=== PATIENT | female | born 1955 | race Caucasian/White ===

== ENCOUNTER 2018-08-17 06:09 | Day surgery (SDC) | payer OTHER ==
[~2018-08-17] VITALS: Ht 154.9 cm; Wt 66.2 kg
[2018-08-17] MEDS ORDERED: fentaNYL 0.05 MG/ML VIAL ONE (07:45)
[2018-08-17] MEDS ORDERED: LIDOCAINE 2% 100 MG/5 ML UJET TP ONE (07:45)
== END 2018-08-17 09:05 | disposition home or self-care (01) ==
LOC: MDS 06:09 → MMU 06:09 → MDS 09:05
PROVIDERS: ATTEND Internal Medicine Gastroenterology
DX: K57.30 Diverticulosis of large intestine without perforation or abscess without bleeding (principal); D64.9 Anemia, unspecified; I10 Essential (primary) hypertension; E66.3 Overweight; M19.90 Unspecified osteoarthritis, unspecified site; Z68.27 Body mass index [BMI] 27.0-27.9, adult; Z98.51 Tubal ligation status; Z98.890 Other specified postprocedural states; Z79.899 Other long term (current) drug therapy
CPT/HCPCS: 45378; J3010

== ENCOUNTER 2021-07-04 06:18 | Emergency (ER) | payer OTHER ==
[~2021-07-04] VITALS: Ht 152.4 cm; Wt 67.1 kg
[2021-07-04 06:22] VITALS: BP 172/81
--- NOTE | 2021-07-04 06:28 | NUR ---
PATIENT TO BED 9
[2021-07-04] MEDS ORDERED: TETRACAINE HCL/PF 0.5% OPTH 4 ML BTL OP ONE (06:45)
[2021-07-04] MEDS ORDERED: FLUORESCEIN OPTH STRIP 1 MG OP ONE (06:45)
--- NOTE | 2021-07-04 06:54 | NUR ---
PT TAKEN TO CT
--- NOTE | 2021-07-04 07:00 | NUR ---
PT RETURN FROM CT
--- NOTE | 2021-07-04 07:17 | NUR ---
at bedside performing procedure
[2021-07-04] MEDS ORDERED: TOMOMETER 1 DEV DEV MC ONE (07:19)
--- NOTE | 2021-07-04 07:26 | NUR ---
gave transfer of care report to Skye Garcia RN.
--- NOTE | 2021-07-04 07:27 | NUR ---
RECEIVED REPORT FROM PENNY NIETO. TRANSFER OF CARE AT THIS TIME.
--- NOTE | 2021-07-04 07:40 | NUR ---
65 Y/O FEMALE C/O HEADACHE X2 WEEKS. PT REPORT TAKING MOTRIN WITH NO RELIEF. DENIES TRAUMA OR INJURY. DENIES FEVER/CHILLS. DENIES N/V/D. PMH: HTN, PRE-DIABETIC, ARTRITIS, HYTERECTOMY NKA
[2021-07-04] MEDS ORDERED: DEXA5SUS20 RIGHT EYE (07:47)
[2021-07-04] MEDS ORDERED: IBUP-2213 PO (07:47)
[2021-07-04 08:04] VITALS: BP 172/81
--- NOTE | 2021-07-04 08:04 | NUR ---
Patient discharged with v/s stable. Written and verbal after care instructions given and explained. Patient alert, oriented and verbalized understanding of instructions. Ambulatory with steady gait. All questions addressed prior to discharge. ID band removed. Patient advised to follow up with PMD. Rx of ibuprofen and maxitrol eye drops given. Patient educated on indication of medication including possible reaction and side effects. Opportunity to ask questions provided and answered.
== END 2021-07-04 08:04 | disposition home or self-care (01) ==
LOC: MED 06:18
DX: H20.9 Unspecified iridocyclitis (principal); E11.9 Type 2 diabetes mellitus without complications; I10 Essential (primary) hypertension; Z79.899 Other long term (current) drug therapy
CPT/HCPCS: 70450; 99284

== ENCOUNTER 2021-09-13 04:39 | Observation (INO) | payer OTHER ==
[~2021-09-13] VITALS: Ht 154.9 cm; Wt 67.6 kg
[~2021-09-13 04:39] MED LIST: DEXA5SUS20 RIGHT EYE; IBUP-2213 PO
[2021-09-13 04:49] VITALS: BP 148/84
--- NOTE | 2021-09-13 05:01 | NUR ---
Patient taken to bed 11 via wheelchair.
[2021-09-13] MEDS ORDERED: ONDANSETRON 4 MG/2 ML VIAL IVP ONE (05:10)
--- NOTE | 2021-09-13 05:27 | NUR ---
PT RETURN FROM CT
--- NOTE | 2021-09-13 05:29 | NUR ---
66 yo/f presents to ED w c/o dizziness constant x approx 5 hours, +n/v. Pt denies any fevers/chills, diarrhea, blood in emesis, chest pain, or sob . PMH: HTN, PRE-DIABETIC, RHEUMATOID ARTHRITIS ALLERGIES: DENIES
[2021-09-13 05:37] LABS: BASOPHILS % (AUTO) 0.4 % (0.0-2.0); EOSINOPHILS # (AUTO) 0.1 K/uL (0-0.4); EOSINOPHILS % (AUTO) 1.1 % (0.0-4.0); HEMATOCRIT 36.5 % (36-48); HEMOGLOBIN 12.2 g/dL (12.0-16.0); LYMPHOCYTES # (AUTO) 1.9 K/uL (2.5-16.5); MEAN CORPUSCULAR HEMOGLOBIN 29 pg (27-31); MEAN CORPUSCULAR HGB CONC 34 g/dL (33-37); MEAN CORPUSCULAR VOLUME 86.2 fL (80-94); MONOCYTES # (AUTO) 0.5 K/uL (0.8-1.0); MONOCYTES % (AUTO) 6.1 % (1.7-9.3); NEUTROPHILS # (AUTO) 6.4 K/uL (1.8-7.7); NEUTROPHILS % (AUTO) 71.4 % (42.2-75.2); PLATELET COUNT (AUTO) 313 K/uL (140-450); RED BLOOD CELL COUNT(AUTO) 4.23 MIL/uL (4.20-5.40); RED CELL DISTRIBUTION WIDTH 14.1 % (11.6-13.7)
--- NOTE | 2021-09-13 05:53 | NUR ---
PT UNABLE TO PROVIDE URINE, PT PROVIDED W WATER.
[2021-09-13 06:04] LABS: ALBUMIN 3.7 g/dL (3.4-5.0); ANION GAP 13.4 (8-16); ASPARTATE AMINOTRANSFERASE 23 U/L (15-37); CARBON DIOXIDE 23.2 mmol/L (21-32); CHLORIDE 107 mmol/L (98-107); CREATININE 0.9 mg/dL (0.6-1.3); GFR ARICAN-AMERICAN 81 mL/min (>90); GLUCOSE 158 mg/dL (74-106); POTASSIUM 3.6 mmol/L (3.5-5.1); SODIUM SERUM 140 mmol/L (136-145); TOTAL BILIRUBIN 0.3 mg/dL (0.0-1.0); UREA NITROGEN, BLOOD 19 mg/dL (7-18)
--- NOTE | 2021-09-13 06:19 | NUR ---
Dr. Ordonez examining patient.
[2021-09-13] MEDS ORDERED: MECLIZINE 25 MG TAB PO ONE (06:25)
--- NOTE | 2021-09-13 07:03 | NUR ---
pt reports dizziness has slight improved but unable to move enough to give urine d/t dizziness, and nausea episodes upon movements.
--- NOTE | 2021-09-13 07:22 | NUR ---
Pt report given to PENNY Najera. Transfer of care at this time.
--- NOTE | 2021-09-13 07:37 | NUR ---
pt ambulatory to bathroom w mild assist.
[2021-09-13] MEDS ORDERED: METOCLOPRAMIDE 10 MG/2 ML INJ VIAL IVP ONE (07:55)
[2021-09-13] MEDS ORDERED: NACL 0.9% 1,000 ML IV ONE (07:55)
[2021-09-13] MEDS ORDERED: diphenhydrAMINE 50 MG/ML VIAL IVP ONE (07:55)
[2021-09-13] MEDS ORDERED: LORazepam 2 MG/ML VIAL IVP ONE (07:55)
[2021-09-13 08:17] LABS: BILIRUBIN,URINE NEGATIVE (NEGATIVE); BLOOD, URINE NEGATIVE (NEGATIVE); COLOR,URINE YELLOW (YELLOW); LEUKOCYTE ESTERASE ,URINE NEGATIVE (NEGATIVE); NITRITE, URINE NEGATIVE (NEGATIVE); UGLUCOSE NEGATIVE (NEGATIVE)
[2021-09-13 08:19] LABS: APPEARANCE,URINE CLEAR (CLEAR)
[2021-09-13] MEDS ORDERED: LISI-487 PO (09:27)
--- NOTE | 2021-09-13 09:28 | NUR ---
les swab and med reconcile done at this time
--- NOTE | 2021-09-13 11:01 | NUR ---
Prabhu calderón in [facility] - 09/13/21 at 1140 by MAIN [facility] arrived with wheelchair at this time.
--- NOTE | 2021-09-13 11:02 | NUR ---
Note asiyaroel in [facility] - 09/13/21 at 1139 by MED[facility] Patient discharged with v/s stable. Written and verbal after care instructions given and explained. Patient alert, oriented and verbalized understanding of instructions. Wheel Chair Assisted with [facility] to assisted. All questions addressed prior to discharge. ID band removed. Patient advised to follow up with PMD. Rx of bismuth subsalicylate, loperamide (script) given. Patient educated on indication of medication including possible reaction and side effects. Opportunity to ask questions provided and answered.
--- NOTE | 2021-09-13 11:41 | NUR ---
pt ambulated with even and steady gait to bathroom at this time
[2021-09-13] MEDS ORDERED: ACETAMINOPHEN 325 MG TAB PO PRN (11:45)
[2021-09-13] MEDS ORDERED: ONDANSETRON 4 MG/2 ML VIAL IVP PRN (11:45)
[2021-09-13] MEDS: NACL 0.9% 1,000 ML IV SCH ×2 (11:45→22:00)
[2021-09-13] MEDS ORDERED: MORPHINE SULFATE 2 MG/ML SYR IVP PRN (11:45)
--- NOTE | 2021-09-13 12:30 | NUR ---
Patient will be admitted to care of Shaikh michelle. Admitted to telemetry. Will go to room 122a. Belongings list completed. Report to melly lockwood.
--- NOTE | 2021-09-13 12:50 | NUR ---
PATIENT TRANSFERRED FROM ER TO ROOM 122A, BED SIDE REPORT RECEIVED FROM PENNY MAHAJNA, ALERT AND ORIENTED LATVIAN SPEAKING FEMALE, C/O HEADACHE AND DIZZINESS, NO SOB OBSERVED, ABDOMEN SOFT NON DISTENDED UPON PALPATION, LAST BM 09/12, IV IN LAC INTACT, INSTRUCTED TO PRESS CALL LIGHT AND WAIT FOR ASSISTENACE PRIOR TO AMBULATING, NO OTHER CONCERNS AT THIS TIME, WILL ASSUME ALL CARE OF PATIENT
[2021-09-13 13:28] VITALS: BP 131/68
[2021-09-13] MEDS ORDERED: SUMAtriptan succinate 50 MG TAB PO SCH (14:10)
--- NOTE | 2021-09-13 14:18 | NUR ---
DC PLANNING: ORDER RECEIVED TO TRANSFER PATIENT FOR MRI TO R/O CVA. KRISTI SPOKE WITH GAVI AT [facility] AND FAXED THE ORDER AND CLINICAL PACKET. ORDER AND REFERRAL FAXED TO [facility] AND [facility] IS AT [facility]. KRISTI WILL FOLLOW. Addendum: 09/13/21 at 1452 by Traci Manley CM DC PLANNING: KRISTI SPOKE WITH LEEANN AT [facility] ([phone]), SHE WAS GIVEN DR GUZMAN'S PHONE NUMBER FOR A PEER TO PEER IF NEEDED. STATES SHE WILL WORK ON THE TRANSFER. KRISTI WILL FOLLOW. Addendum: 09/13/21 at 1507 by Traci Manley CM DC PLANNING: THE [facility] SPOKE WITH DR GUZMAN, RECOMMENDED THAT HE REASSESS THE PATIENT AND DO A REPEAT CT OF HEAD AND CALL [facility] BACK WITH THE RESULTS, PER LEEANN AT THE TRANSFER CENTER. CM WILL FOLLOW.
--- NOTE | 2021-09-13 15:00 | NUR ---
PATIENT C/O HEADACHE, IMITREX ADMINISTERED PER EMAR
--- NOTE | 2021-09-13 15:07 | NUR ---
DR GUZMAN CALLED STATED HE SPOKE TO IN [place] AND STATED TO ORDER CT HEAD TOMORROW IN AM. WILL CONTINUE WITH ORDERS.
--- NOTE | 2021-09-13 17:13 | NUR ---
TELEPHONE ORDER OBTAINED FROM FOR CARDIAC DIET
[2021-09-13 17:30] VITALS: BP 144/75
--- NOTE | 2021-09-13 20:00 | NUR ---
RECEIVE IN BED WITH FAMILY AT BEDSIDE NO DIZZINESS
[2021-09-13 21:33] VITALS: BP 150/76
[2021-09-14] VITALS: BP 116/52
[2021-09-14 04:00] VITALS: BP 124/60
[2021-09-14 05:06] LABS: BASOPHILS % (AUTO) 0.5 % (0.0-2.0); EOSINOPHILS # (AUTO) 0.3 K/uL (0-0.4); EOSINOPHILS % (AUTO) 4.4 % (0.0-4.0); HEMATOCRIT 31.9 % (36-48); HEMOGLOBIN 10.7 g/dL (12.0-16.0); LYMPHOCYTES # (AUTO) 2.6 K/uL (2.5-16.5); LYMPHOCYTES % (AUTO) 34.5 % (20.5-51.1); MEAN CORPUSCULAR HEMOGLOBIN 29 pg (27-31); MEAN CORPUSCULAR HGB CONC 34 g/dL (33-37); MEAN CORPUSCULAR VOLUME 86.9 fL (80-94); MONOCYTES # (AUTO) 0.6 K/uL (0.8-1.0); MONOCYTES % (AUTO) 7.9 % (1.7-9.3); NEUTROPHILS # (AUTO) 3.9 K/uL (1.8-7.7); NEUTROPHILS % (AUTO) 52.7 % (42.2-75.2); PLATELET COUNT (AUTO) 284 K/uL (140-450); RED BLOOD CELL COUNT(AUTO) 3.67 MIL/uL (4.20-5.40); RED CELL DISTRIBUTION WIDTH 14.1 % (11.6-13.7); WHITE BLOOD COUNT (AUTO) 7.5 K/uL (4.8-10.8)
[2021-09-14 05:09] LABS: ALBUMIN 2.9 g/dL (3.4-5.0); ANION GAP 8.8 (8-16); CARBON DIOXIDE 26.3 mmol/L (21-32); CREATININE 0.8 mg/dL (0.6-1.3); PHOSPHORUS 3.6 mg/dL (2.5-4.9); POTASSIUM 4.1 mmol/L (3.5-5.1); TOTAL BILIRUBIN 0.3 mg/dL (0.0-1.0)
--- NOTE | 2021-09-14 07:25 | NUR ---
RECEIVED REPORT FROM FIELD SERVICES DIRECTOR NURSE FOR CONTINUITY OF CARE. PATIENT AWAKE NO DISTRESS NOTED. RESPIRATION EVEN AND NOT LABORED NO SHORTNESS OF BREATH. IV SITE ON LEFT AC SOL 20 RUNNING AT 125/HOURS.. ALL SAFETY MEASURE IN PLACE.
[2021-09-14 08:00] VITALS: BP 150/76
--- NOTE | 2021-09-14 08:00 | NUR ---
Patient's Plan of Care was discussed and reviewed with DOOR MAKER: SANTOS MCKEON
[2021-09-14] MEDS: NACL 0.9% 1,000 ML IV SCH ×2 (09:45→11:45)
--- NOTE | 2021-09-14 09:45 | NUR ---
CHANGE IV HYDRATION BAG. PATIENT ON STABLE CONDITION. ENCOURAGED TO CALL FOR ASSISTANCE WHEN GOING TO BATHROOM.
--- NOTE | 2021-09-14 11:03 | NUR ---
PATIENT ALERT ON STABLE CONDITION. WHEELED BY RADIOLOGIST TO HAVE PATIENT CT OF HEAD.
--- NOTE | 2021-09-14 11:09 | NUR ---
RESIDENT BACK FROM RADIOLOGY ON STABLE CONDITION. HOOK BACK TO IV.
--- NOTE | 2021-09-14 11:38 | NUR ---
PATIENT HAS BEEN SCREENED AND CATEGORIZED LOW NUTRITION RISK. PATIENT WILL BE SEEN WITHIN 7 DAYS OF ADMISSION. 09/19/[address]
[2021-09-14 12:00] VITALS: BP 154/74
--- NOTE | 2021-09-14 12:21 | NUR ---
LEFT MESSAGE TO DR. GUZMAN PATIENT BLOOD PRESSURE IS AT 150S PATIENT SAYING THAT SHE USE TO TAKE LISINOPRIL 20 MG ONCE A DAY IF WE CAN GIVE IT TO HER.
--- NOTE | 2021-09-14 13:31 | NUR ---
DR. GUZMAN ORDER FOR LISINOPRIL TO GIVE TO PATIENT ONCE A DAY ORDER NOTED AND CARRIED OUT.
[2021-09-14] MEDS ORDERED: IMI50 PO (15:31)
[2021-09-14] MEDS ORDERED: MECL-303 PO (15:32)
[2021-09-14] MEDS ORDERED: TOP25 PO (15:32)
--- NOTE | 2021-09-14 16:00 | NUR ---
INFORM PATIENT OF THE ORDER FOR DISCHARGE.
--- NOTE | 2021-09-14 16:40 | NUR ---
PATIENT ALERT ORIENTED ON STABLE CONDITION. SON AT BED SIDE GIVEN THE DISCHARGE POCKET WITH INSTRUCTION VERBALIZED UNDERSTANDING. REMOVED IV SITE WITH CATHETER INTACT. AND NAME BAND. WHEEL PATIENT TO FRONT TO THEIR PRIVATE VEHICLE.
[2021-09-15] MEDS ORDERED: lisinopriL 20 MG TAB PO SCH (09:00)
== END 2021-09-14 16:37 | disposition home or self-care (01) ==
LOC: MED 04:39 → MTU 11:43
PROVIDERS: ADMIT Internal Medicine; ATTEND Internal Medicine
DX: R42 Dizziness and giddiness (principal); Z20.822 Contact with and (suspected) exposure to COVID-19; G43.909 Migraine, unspecified, not intractable, without status migrainosus; R11.2 Nausea with vomiting, unspecified; I10 Essential (primary) hypertension; M06.9 Rheumatoid arthritis, unspecified; E11.9 Type 2 diabetes mellitus without complications; Z90.710 Acquired absence of both cervix and uterus; Z79.899 Other long term (current) drug therapy
CPT/HCPCS: 36415; 70450; 80053; 81003; 83735; 84100; 84484; 85025; 87081; 87426; 93005; 96361; 96374; 96375; 99285; G0378; J1200; J2060; J2270; J2405; J2765; J8597

== ENCOUNTER 2023-02-19 19:21 | Emergency (ER) | payer OTHER ==
[~2023-02-19] VITALS: Ht 152.4 cm; Wt 64.4 kg
[~2023-02-19 19:21] MED LIST changes: +IMI50 PO; +LISI-487 PO; +MECL-303 PO; +TOP25 PO
[2023-02-19 19:56] VITALS: BP 155/73; PULSE 90; RESP 20; O2SAT 98
[2023-02-19 21:38] LABS: APPEARANCE,URINE CLEAR (CLEAR); BILIRUBIN,URINE NEGATIVE (NEGATIVE); BLOOD, URINE TRACE-I (NEGATIVE); COLOR,URINE YELLOW (YELLOW); LEUKOCYTE ESTERASE ,URINE TRACE (NEGATIVE); NITRITE, URINE NEGATIVE (NEGATIVE); PROTEIN,URINE TRACE (NEGATIVE); UGLUCOSE NEGATIVE (NEGATIVE); UROBILINOGEN,URINE 0.2 EU/dL (0.2 - 1)
[2023-02-19 21:41] LABS: BACTERIA,URINE 1+ /HPF (None Seen); MUCUS,URINE 1+ /LPF (None Seen); SQUAMOUS EPITHELIAL CELL,UR 0-3 (FEW) /LPF (0-3 (FEW)); TRICHOMONAS,URINE None Seen /HPF (None Seen); YEAST,URINE None Seen /HPF (None Seen)
[2023-02-19 22:08] LABS: BASOPHILS # (AUTO) 0.1 K/uL (0.00-0.22); BASOPHILS % (AUTO) 0.3 % (0.0-2.0); EOSINOPHILS # (AUTO) 0.3 K/uL (0-0.4); EOSINOPHILS % (AUTO) 1.7 % (0.0-4.0); HEMATOCRIT 37.4 % (36-48); HEMOGLOBIN 12.1 g/dL (12.0-16.0); LYMPHOCYTES # (AUTO) 1.4 K/uL (2.5-16.5); LYMPHOCYTES % (AUTO) 8.5 % (20.5-51.1); MEAN CORPUSCULAR HEMOGLOBIN 28 pg (27-31); MEAN CORPUSCULAR HGB CONC 32 g/dL (33-37); MEAN CORPUSCULAR VOLUME 85.7 fL (80-94); MONOCYTES # (AUTO) 0.9 K/uL (0.8-1.0); MONOCYTES % (AUTO) 5.3 % (1.7-9.3); NEUTROPHILS # (AUTO) 13.6 K/uL (1.8-7.7); NEUTROPHILS % (AUTO) 84.2 % (42.2-75.2); PLATELET COUNT (AUTO) 486 K/uL (140-450); RED BLOOD CELL COUNT(AUTO) 4.36 MIL/uL (4.20-5.40); WHITE BLOOD COUNT (AUTO) 16.1 K/uL (4.8-10.8)
[2023-02-19 22:20] LABS: ANION GAP 15.3 (8-16); CALCIUM 9.4 mg/dL (8.5-10.1); CARBON DIOXIDE 25.1 mmol/L (21-32); CREATININE 0.8 mg/dL (0.6-1.3); POTASSIUM 4.4 mmol/L (3.5-5.1)
[2023-02-19] MEDS ORDERED: KETOROLAC 60 MG/2 ML VIAL IM ONE (23:25)
[2023-02-19] MEDS ORDERED: ONDA8TAB87 PO (23:32)
[2023-02-19] MEDS ORDERED: CIPR500T4 PO (23:32)
[2023-02-19] MEDS ORDERED: IBUP-2213 PO (23:32)
== END 2023-02-19 23:44 | disposition home or self-care (01) ==
LOC: MED 19:21
DX: N39.0 Urinary tract infection, site not specified (principal); R51.9 Headache, unspecified; I10 Essential (primary) hypertension; Z79.899 Other long term (current) drug therapy
CPT/HCPCS: 36415; 80048; 81001; 83690; 85025; 87086; 93005; 96372; 99284; J1885